=== PATIENT | female | born 1945 | race Two or more races ===

== ENCOUNTER 2017-02-19 08:09 | Emergency (ER) | payer OTHER ==
[~2017-02-19] VITALS: Wt 112.0 kg
[~2017-02-19 08:09] MED LIST: AMLO5TAB4 PO; ATOR20TA38 PO; BIMA2.5D BOTH EYES; CARV25TA79 PO; ESCI20TA38 PO; FURO-109 PO; LAMO100T PO; METF500T4 PO; OXYB5TAB7 PO; WARF4TAB52 PO
[2017-02-19] MEDS ORDERED: morphine 4 MG/ML VIAL IV STA (08:13)
[2017-02-19] MEDS ORDERED: ONDANSETRON 4 MG INJ IV STA (08:13)
[2017-02-19 08:14] VITALS: Wt 112.0 kg
--- NOTE | 2017-02-19 08:19 | ERA ---
ER Documentation Chief Complaint Date/Time DATE: 02/19/17 TIME: 08:17 Chief Complaint HPI 71-year-old female history of morbid obesity, atrial fibrillation who presents with right flank pain. The patient describes several days of right flank pain radiating to the anterior abdomen. The patient was seen by primary care physician several days ago and was noted to have microscopic hematuria. She denies colicky pain. The pain is worse with rotational movement. No chest pain no pleuritic pain no fevers or chills. She has prior history of cholecystectomy. No nausea vomiting or diarrhea or constipation. Pain is moderate. At this time. ROS All systems reviewed and are negative except as per history of present illness. Medications Home Meds Active Scripts Ondansetron (Ondansetron Odt) 4 Mg Tab.rapdis, 4 MG PO Q6H Y for NAUSEA AND/OR VOMITING, #30 TAB Prov:JEANIE RAMESH MD 02/19/17 Hydrocodone/Acetaminophen ([place] 10-325 Tablet) 1 Each Tablet, 1 TAB PO Q6H Y for PAIN, #7 TAB Prov:JEANIE RAMESH MD 02/19/17 Atorvastatin Calcium* (Atorvastatin Calcium*) 20 Mg Tablet, 20 MG PO QHS, #30 TAB Prov:ROMELIA HOLLOWAY FIELD GAUGER 05/07/16 Metformin Hcl* (Metformin Hcl*) 500 Mg Tablet, 500 MG PO WITH BREAKFAST DINNE, # 60 TAB Prov:ROMELIA HOLLOWAY FIELD GAUGER 05/07/16 Reported Medications Amlodipine Besylate* (Norvasc*) 5 Mg Tablet, 5 MG PO DAILY, TAB 05/06/16 Furosemide* (Lasix*) 40 Mg Tablet, 40 MG PO BID, TAB 05/06/16 Escitalopram Oxalate* (Escitalopram Oxalate*) 20 Mg Tablet, 20 MG PO DAILY, #30 TAB 10/19/15 Lamotrigine* (Lamotrigine*) 100 Mg Tablet, 100 MG PO BID, TAB 10/19/15 Carvedilol* (Carvedilol*) 25 Mg Tablet, 25 MG PO BID, #60 10/15/15 Warfarin Sodium* (Warfarin Sodium*) 4 Mg Tablet, 4 MG PO DAILY, TAB 03/26/14 Bimatoprost* (Lumigan*) 2.5 Ml Drops, 1 DROP BOTH EYES HS 06/02/13 Oxybutynin Chloride* (Ditropan*) 5 Mg Tablet, 5 MG PO TID 06/02/13 Allergies Allergies: Coded Allergies: No Known Drug Allergies (Verified Allergy, Mild, 05/06/16) PMhx/Soc History of Surgery: Yes (HYSTERECTOMY; GALL BLADDER REMOVAL; AICD PLACEMENT ) Anesthesia Reaction: No Hx Neurological Disorder: No Hx Respiratory Disorders: No Hx Cardiac Disorders: Yes (HTN; CARDIOMYOPATHY; AFIB; CHF; HIGH CHOLESTEROL ) Hx Psychiatric Problems: No Hx Miscellaneous Medical Probl: No Hx Alcohol Use: No Hx Substance Use: No Hx Tobacco Use: No FmHx Family History: No diabetes Physical Exam Vitals Vital Signs Date Time Temp Pulse Resp B/P Pulse Ox O2 Delivery O2 Flow Rate FiO2 02/19/17 08:14 97.9 86 20 170/88 98 Physical Exam General: Well developed, well nourished, slightly uncomfortable, morbid obesity Head: Normocephalic, atraumatic. Eyes: Pupils equally reactive, EOM intact ENT: Moist mucous membranes Neck: Supple, no lymphadenopathy Respiratory: Lungs clear bilaterally, no distress Cardiovascular: RRR, no murmurs, rubs, or gallops Abdominal: Soft, non-tender, non-distended, no peritoneal signs, no pulsatile mass Back: Mild soft tissue reproducible tenderness along the right flank no skin changes : Deferred MSK: No edema, no unilateral swelling, 5/5 strength Neurologic: Alert and oriented, moving all extremities, normal speech, no focal weakness, no cerebellar signs Skin: No rash, no vesicles Psych: Normal mood Result Diagram: 02/19/17 0830 02/19/17 0830 Results 24 hrs Laboratory Tests Test 02/19/17 08:30 02/19/17 09:14 White Blood Count 9.410^3/ul Red Blood Count 4.2110^6/ul Hemoglobin 12.7g/dl Hematocrit 37.9% Mean Corpuscular Volume 90.0fl Mean Corpuscular Hemoglobin 30.2pg Mean Corpuscular Hemoglobin Concent 33.5g/dl Red Cell Distribution Width 13.7% Platelet Count 51744^3/UL Mean Platelet Volume 10.2fl Neutrophils % 66.0% Lymphocytes % 25.3% Monocytes % 6.7% Eosinophils % 1.3% Basophils % 0.4% Nucleated Red Blood Cells % 0.0/100WBC Neutrophils # 6.210^3/ul Lymphocytes # 2.410^3/ul Monocytes # 0.610^3/ul Eosinophils # 0.110^3/ul Basophils # 0.010^3/ul Nucleated Red Blood Cells # 0.010^3/ul Sodium Level 143mmol/L Potassium Level 4.3mmol/L Chloride Level 103mmol/L Carbon Dioxide Level 24mmol/L Anion Gap 20 Blood Urea Nitrogen 18mg/dl Creatinine 0.75mg/dl Glucose Level 217mg/dl Calcium Level 9.2mg/dl Total Bilirubin 0.7mg/dl Direct Bilirubin 0.00mg/dl Indirect Bilirubin 0.7mg/dl Aspartate Amino Transf (AST/SGOT) 25IU/L Alanine Aminotransferase (ALT/SGPT) 27IU/L Alkaline Phosphatase 118IU/L Total Protein 8.2g/dl Albumin 4.3g/dl Globulin 3.90g/dl Albumin/Globulin Ratio 1.10 Lipase 205U/L Urine Color YELLOW Urine Clarity SLIGHTLY CLOUDY Urine pH 6.0 Urine Specific [place] 1.018 Urine Ketones NEGATIVEmg/dL Urine Nitrite NEGATIVEmg/dL Urine Bilirubin NEGATIVEmg/dL Urine Urobilinogen NEGATIVEmg/dL Urine Leukocyte Esterase NEGATIVELeu/ul Urine Microscopic RBC 0/HPF Urine Microscopic WBC 1/HPF Urine Squamous Epithelial Cells FEW/HPF Urine Bacteria FEW/HPF Urine Hemoglobin NEGATIVEmg/dL Urine Glucose NEGATIVEmg/dL Urine Total Protein 2+mg/dl Current Medications Medications (Trade) Dose Ordered Sig/Robbi Route PRN Reason Start Time Stop Time Status Last Admin Dose Admin Morphine Sulfate (morphine) 4 mg ONCE STAT IV 02/19/17 08:13 02/19/17 08:14 DC 02/19/17 08:21 Ondansetron HCl (Zofran Inj) 4 mg ONCE STAT IV 02/19/17 08:13 02/19/17 08:14 DC 02/19/17 08:21 Procedures/MDM EKG, MONITORS, & DIAGNOSTIC IMAGING: CT abdomen and pelvis: IMPRESSION: No evidence of urolithiasis, obstructive uropathy, diverticulitis or appendicitis. Diverticulosis. Post hysterectomy. Post cholecystectomy. Vascular calcifications. .Julian Cueto MD, MD Date Time Electronically viewed and signed by .Julian Cueto MD, MD on 02/19/2017 09: 11 .A/ CC: JEANIE RAMESH MD LAB INTERPRETATION: No significant leukocytosis, no evidence of urinary tract infection MEDICAL DECISION MAKING: The patient presents with several days of right flank pain. Broad differential exists including lumbar thoracic radiculopathy, muscle spasm secondary to body habitus, nephrolithiasis or ureterolithiasis. Low clinical concern for cholecystitis given absence of gallbladder. No signs or symptoms of acute aortic process such as dissection. No evidence of cardiopulmonary process such as pulmonary embolism. Given the patient's body habitus limiting exam I believe CT imaging of the abdomen and pelvis would be appropriate to rule out acute intra-abdominal process or ureterolithiasis. ER COURSE: The patient was given pain control medication and has improved symptomatology is now ambulatory. The patient's laboratory testing and CT imaging showed no evidence of acute process. This again is more likely secondary to musculoskeletal etiology secondary to body habitus versus lumbar radiculopathy or thoracolumbar radiculopathy. Outpatient follow-up with primary care physician would be most appropriate, consideration for MRI if symptoms do not improve with pain medication. Again no evidence of shingles. I kept the patient and/or family informed of laboratory and diagnostic imaging results throughout the emergency room course. DISPOSITION PLAN: We discussed follow up with the patient's primary care doctor within 24 to 48 hours as needed. We also discussed return to the emergency room for worsening symptoms or worsening condition. Outpatient referral: [None required] Discharge Medications: [place], Zofran We discussed the use of narcotics including avoidance of operating heavy machinery and driving as well as its addictive properties. Departure Diagnosis: Primary Impression: Acute flank pain Condition: Good JEANIE RAMESH MD Feb 19, 2017 08:19
[2017-02-19 09:05] LABS: BASOPHILS % 0.4 % (0.0-2.0); EOSINOPHILS # 0.1 10^3/ul (0.0-0.5); EOSINOPHILS % 1.3 % (0.0-7.0); HEMATOCRIT 37.9 % (37.0-47.0); HEMOGLOBIN 12.7 g/dl (12.0-16.0); LYMPHOCYTES # 2.4 10^3/ul (0.8-2.9); LYMPHOCYTES % 25.3 % (15.0-51.0); MEAN CORPUSCULAR HEMOGLOBIN 30.2 pg (29.0-33.0); MEAN CORPUSCULAR HGB CONC 33.5 g/dl (32.0-37.0); MEAN PLATELET VOLUME 10.2 fl (7.4-10.4); MONOCYTE # 0.6 10^3/ul (0.3-0.9); MONOCYTES % 6.7 % (0.0-11.0); NEUTROPHIL # 6.2 10^3/ul (1.6-7.5); PLATELET COUNT 282 10^3/UL (140-415); RED BLOOD COUNT 4.21 10^6/ul (4.20-5.40); RED CELL DISTRIBUTION WIDTH 13.7 % (11.5-14.5); WHITE BLOOD COUNT 9.4 10^3/ul (4.8-10.8)
--- NOTE | 2017-02-19 09:11 | RADRPT ---
PROCEDURE: CT abdomen and pelvis without contrast. CLINICAL INDICATION: Abdominal Pain TECHNIQUE: CT scan of the abdomen and pelvis without contrast was performed and is reconstructed a t 2.5 mm contiguous axial intervals from the dome of the diaphragm to the inferior pubic rami.. The patient was scanned without intravenous contrast. Sagittal and coronal reformatted images were obt ained from the axial source images. The calculated radiation dose measures 1216 mGy centimeters. The CTDI measures 24 mGy. COMPARISON: CT abdomen October 15, 2015. FINDINGS: The lung bases are clear of any infiltrate or nodule. No effusion is seen. Pacemaker wires seen in the heart. The liver is of normal size, contour and attenuation with no mass or ductal dilatation. Gallbladder has been removed. No splenic, adrenal or pancreatic abnormalities present. Kidneys are of normal size and contour. No hydronephrosis, calculus or masses seen. There is a 1 c m curvilinear calcification in the right renal pelvis likely representing calcification of the renal artery. Ureters are of normal course and caliber with no stone. No bladder mass or stone is presen t. Uterus is been removed. There is no adnexal mass. There is no aneurysm. Calcifications are present in the aorta and iliac arteries. No adenopathy is present. No bowel mass or obstruction is present. The appendix is not clearly visualized, however, no infl marlin appendix is seen.. No phlegmon, ascites or pneumoperitoneum is visualized. The osseous structures are intact. IMPRESSION: No evidence of urolithiasis, obstructive uropathy, diverticulitis or appendicitis. Diverticulosis. Post hysterectomy. Post cholecystectomy. Vascular calcifications. .Julian Cueto MD, MD Date Time Electronically viewed and signed by .Julian Cueto MD, MD on 02/19/2017 09:11 .A/
[2017-02-19 09:18] LABS: ALBUMIN 4.3 g/dl (3.3-4.9); ALBUMIN/GLOBULIN RATIO 1.1; BILIRUBIN,INDIRECT 0.7 mg/dl (0-1.1); BILIRUBIN,TOTAL 0.7 mg/dl (0.2-1.3); CALCIUM 9.2 mg/dl (8.4-10.2); CREATININE 0.75 mg/dl (0.44-1.00); POTASSIUM 4.3 mmol/L (3.5-5.1); TOTAL PROTEIN 8.2 g/dl (6.1-8.1)
[2017-02-19 09:38] LABS: ADD UMIC YES; UR ASCORBIC ACID NEGATIVE (NEGATIVE); UR BACTERIA FEW /HPF (NONE SEEN); UR BILIRUBIN (Dip) NEGATIVE (NEGATIVE); UR BLOOD (Dip) NEGATIVE (NEGATIVE); UR CLARITY SLIGHTLY CLOUDY (CLEAR); UR COLOR YELLOW (YELLOW); UR GLUCOSE (Dip) NEGATIVE (NEGATIVE); UR KETONES (Dip) NEGATIVE (NEGATIVE); UR LEUKOCYTE ESTERASE (Dip) NEGATIVE Leu/ul (NEGATIVE); UR NITRITE (Dip) NEGATIVE (NEGATIVE); UR RBC 0 /HPF (0-5); UR SPECIFIC GRAVITY (Dip) 1.018 (1.003-1.030); UR SQUAMOUS EPITHELIAL CELL FEW /HPF (FEW); UR TOTAL PROTEIN (Dip) 2+ mg/dl (NEGATIVE); UR UROBILINOGEN (Dip) NEGATIVE (NEGATIVE)
[2017-02-19] MEDS ORDERED: HYDR-902 PO (09:46)
[2017-02-19] MEDS ORDERED: ONDA4TAB14 PO (09:46)
[2017-02-19 10:11] VITALS: BP 161/85; PULSE 85; RESP 20; TEMP 98.4
== END 2017-02-19 10:13 | disposition home or self-care (01) ==
LOC: E/R 08:09
DX: R10.9 Unspecified abdominal pain (principal); I10 Essential (primary) hypertension; I50.9 Heart failure, unspecified; Z79.84 Long term (current) use of oral hypoglycemic drugs; Z79.01 Long term (current) use of anticoagulants
CPT/HCPCS: 74176; 80053; 81001; 83690; 85025; J2270; J2405; 36415; 96374; 96375

== ENCOUNTER 2018-05-21 16:26 | Emergency (ER) | END 2018-05-21 19:20 | disposition home or self-care (01) ==

== ENCOUNTER 2018-08-07 11:59 | Inpatient (IN) | payer OTHER ==
[~2018-08-07] VITALS: Ht 165.1 cm; Wt 135.4 kg
[~2018-08-07 11:59] MED LIST changes: +AMIO200T4 PO; -AMLO5TAB4 PO; +APIX5TAB PO; -BIMA2.5D BOTH EYES; +CARV12.579 PO; -CARV25TA79 PO; -ESCI20TA38 PO; +IBUP-1542 PO; -LAMO100T PO; -METF500T4 PO; +ONDA4TAB14 PO; -OXYB5TAB7 PO; +SITA50TA2 PO; +SOLI5TAB2 PO; -WARF4TAB52 PO
[2018-08-07] MEDS ORDERED: NITROGLYCERIN 2% 1 GM OINT PKT TD STA (12:01)
[2018-08-07] MEDS ORDERED: METOPROLOL 5 MG INJ IV ONE (12:30)
[2018-08-07] MEDS ORDERED: NITROGLYCERIN (SL) 0.4 MG TAB SL PRN (12:30)
[2018-08-07] MEDS ORDERED: FURO-110 PO (13:24)
[2018-08-07] MEDS ORDERED: ONDANSETRON 4 MG INJ IV PRN ×2 (13:30→18:00)
[2018-08-07] MEDS ORDERED: ACETAMINOPHEN 325 MG TAB PO PRN ×2 (13:30→18:00)
--- NOTE | 2018-08-07 13:49 | ERD ---
ER Documentation Chief Complaint Chief Complaint cp starting yesterday, cont this morning, no sob complaint HPI Patient is a 72-year-old female with atrial fibrillation, coronary disease, CHF, hypertension, and diabetes who presents with chest pain. The symptoms started last night. She describes her pain as a 6 out of 10 and after nitroglycerin and aspirin by paramedics she was 0 out of 10. She feels tired overall. She was br ought in by ambulance. ROS All systems reviewed and are negative except as per history of present illness. Medications Home Meds Reported Medications Furosemide* (Lasix*) 20 Mg Tablet, 20 MG PO DAILY, TAB 08/07/18 Atorvastatin Calcium* (Atorvastatin Calcium*) 20 Mg Tablet, 20 MG PO QHS, #30 TAB 05/21/18 Solifenacin* (Vesicare*) 5 Mg Tablet, 5 MG PO DAILY, TAB 05/21/18 Apixaban* (Eliquis*) 5 Mg Tablet, 5 MG PO BID, TAB 05/21/18 Sitagliptin* (Januvia*) 50 Mg Tablet, 50 MG PO DAILY, #30 TAB 05/21/18 Amiodarone Hcl* (Amiodarone Hcl*) 200 Mg Tablet, 200 MG PO DAILY, #30 TAB 05/21/18 Carvedilol* (Carvedilol*) 12.5 Mg Tablet, 12.5 MG PO BID, #60 TAB 05/21/18 Discontinued Reported Medications Furosemide* (Lasix*) 40 Mg Tablet, 60 MG PO DAILY, TAB 05/21/18 Discontinued Scripts Ondansetron (Ondansetron Odt) 4 Mg Tab.rapdis, 4 MG PO Q6H PRN for NAUSEA AND/OR VOMITING, #10 TAB Prov:ANNE MACEDO MD 05/21/18 Ibuprofen* (Motrin*) 600 Mg Tab, 600 MG PO Q6H PRN for PAIN AND OR ELEVATED TEMP, #30 TAB Prov:ANNE MACEDO MD 05/21/18 Allergies Allergies: Coded Allergies: No Known Drug Allergies (Verified Allergy, Mild, 05/21/18) PMhx/Soc Positive for coronary disease, CHF, hypertension, diabetes, and atrial fibrillation History of Surgery: No Anesthesia Reaction: No Hx Neurological Disorder: No Hx Respiratory Disorders: No Hx Cardiac Disorders: No Hx Psychiatric Problems: No Hx Miscellaneous Medical Probl: No Hx Alcohol Use: No Hx Substance Use: No Hx Tobacco Use: No FmHx Family History: coronary disease Physical Exam Vitals Vital Signs Date Temp Pulse Resp B/P (MAP) Pulse Ox O2 O2 Flow FiO2 Time Delivery Rate 08/07/18 98.8 125 20 154/127 99 12:11 (136) Physical Exam Const: No acute distress Head: Atraumatic Eyes: Normal Conjunctiva ENT: Normal External Ears, Nose and Mouth. Neck: Full range of motion. No meningismus. Resp: Clear to auscultation bilaterally Cardio: Irregular rhythm, tachycardic rate Abd: Soft, non tender, non distended. Normal bowel sounds Skin: Pale skin Back: No midline or flank tenderness Ext: No cyanosis, or edema Neur: Awake and alert Psych: Normal Mood and Affect Result Diagram: 08/07/18 1255 08/07/18 1255 Results 24 hrs Laboratory Tests Test 08/07/18 12:55 White Blood Count 8.7 10^3/ul Red Blood Count 4.48 10^6/ul Hemoglobin 13.4 g/dl Hematocrit 41.2 % Mean Corpuscular Volume 92.0 fl Mean Corpuscular Hemoglobin 29.9 pg Mean Corpuscular Hemoglobin Concent 32.5 g/dl Red Cell Distribution Width 13.2 % Platelet Count 290 10^3/UL Mean Platelet Volume 10.5 fl Immature Granulocytes % 0.200 % Neutrophils % 72.4 % Lymphocytes % 20.3 % Monocytes % 6.0 % Eosinophils % 0.6 % Basophils % 0.5 % Nucleated Red Blood Cells % 0.0 /100WBC Immature Granulocytes # 0.020 10^3/ul Neutrophils # 6.3 10^3/ul Lymphocytes # 1.8 10^3/ul Monocytes # 0.5 10^3/ul Eosinophils # 0.1 10^3/ul Basophils # 0.0 10^3/ul Nucleated Red Blood Cells # 0.0 10^3/ul Sodium Level 141 mmol/L Potassium Level 4.1 mmol/L Chloride Level 102 mmol/L Carbon Dioxide Level 27 mmol/L Anion Gap 12 Blood Urea Nitrogen 19 mg/dl Creatinine 0.84 mg/dl Est Glomerular Filtrat Rate mL/min > 60 mL/min Glucose Level 259 mg/dl Calcium Level 9.4 mg/dl Troponin I < 0.012 ng/ml Current Medications Medications Dose Sig/Robbi Start Time Status Last (Trade) Ordered Route PRN Stop Time Admin Dose Reason Admin 1 inch ONCE STAT 08/07/18 DC 08/07/18 Nitroglycerin TD 12:01 12:47 08/07/18 12:02 (Nitroglyceri n 2% Oint) 1 tab Q5M UP TO 3 08/07/18 Nitroglycerin DOSES PRN 12:30 SL CHEST (Nitroglyceri PAIN n (Sl Tab) 0.4 Mg) Metoprolol 5 mg ONCE ONCE 08/07/18 DC Tartrate IV 12:30 (Lopressor) 08/07/18 12:31 Ondansetron 4 mg ER BRIDGE 08/07/18 HCl (Zofran PRN IV 13:30 Inj) NAUSEA AND/OR 08/08/18 13:29 VOMITING 650 mg ER BRIDGE 08/07/18 Acetaminophen PRN PO MILD 13:30 (Tylenol PAIN(1-3)OR 08/08/18 13:29 Tab) ELEVATED TEMP Procedures/MDM EKG read by me: Rate/Rhythm: Rapid atrial fibrillation Intervals: Normal Impression: Rapid A. fib without ST elevations Chest x-ray read by radiology. Patient is a 72-year-old female with multiple chronic risk factors who presents with chest pain and rapid atrial fibrillation. She was given metoprolol 5 mg IV. She was given aspirin and nitroglycerin by paramedics. She was given nitroglycerin paste in the emergency department. She will be admitted to the care of the panel team to a telemetry bed. I am concerned about potential acute coronary syndrome as well. I doubt pneumonia, pneumothorax, pulmonary embolism, or aortic dissection. Critical Care: Time: 35 minutes excluding all billable procedures. Treatments/Evaluations: Close monitoring and treatment of unstable vital signs, cardiorespiratory, and neurologic status, while maintaining tight balance of fluid, respiratory, and cardiac interventions. Departure Diagnosis: Primary Impression: Rapid atrial fibrillation Additional Impression: Chest pain Chest pain type: unspecified Qualified Codes: R07.9 - Chest pain, unspecified Condition: ANNE Mcneal MD Aug 07, 2018 13:49
--- NOTE | 2018-08-07 17:55 | HP ---
Date/Time of Note Date/Time of Note DATE: 08/07/18 TIME: 17:51 Assessment/Plan VTE Prophylaxis Pharmacological prophylaxis: LMWH Lines/Catheters IV Catheter Type (from Nrs): Saline Lock Assessment/Plan Hospital Course 1. Chest pain likely secondary to palpitations Rule out ACS with troponins Cardizem drip and oral Cardizem Patient has an outpatient appointment with cardiology early next month, no indication for inpatient stress test 2. Morbid obesity Left cell changes advised 3. Diabetes Continue home regimen 4. Hypertension Continue home meds 5. History of cardiac arrest status post AICD placement No acute issues Prophylaxis: Lovenox Result Diagram: 08/07/18 1255 08/07/18 1255 Results 24hrs Laboratory Tests Test 08/07/18 12:55 White Blood Count 8.7 # Red Blood Count 4.48 Hemoglobin 13.4 Hematocrit 41.2 Mean Corpuscular Volume 92.0 Mean Corpuscular Hemoglobin 29.9 Mean Corpuscular Hemoglobin Concent 32.5 Red Cell Distribution Width 13.2 Platelet Count 290 Mean Platelet Volume 10.5 H Immature Granulocytes % 0.200 Neutrophils % 72.4 Lymphocytes % 20.3 Monocytes % 6.0 Eosinophils % 0.6 Basophils % 0.5 Nucleated Red Blood Cells % 0.0 Immature Granulocytes # 0.020 Neutrophils # 6.3 Lymphocytes # 1.8 Monocytes # 0.5 Eosinophils # 0.1 Basophils # 0.0 Nucleated Red Blood Cells # 0.0 Sodium Level 141 Potassium Level 4.1 Chloride Level 102 Carbon Dioxide Level 27 Anion Gap 12 Blood Urea Nitrogen 19 Creatinine 0.84 Est Glomerular Filtrat Rate mL/min > 60 Glucose Level 259 H Calcium Level 9.4 Troponin I < 0.012 HPI/ROS Admit Date/Time Admit Date/Time August 07, 2018 Hx of Present Illness Patient is a 72 year-old female with a history of morbid obesity, cardiac arrest status post defibrillator placement several years ago, paroxysmal A. fib, diabetes, hypertension who presents with chest pain and palpitations. In the ER patient was noted to be in A. fib with rapid response with elevated blood pressure. Patient does state that she is compliant with her medications, patient has no other complaints at this time. ROS Constitutional: no complaints, improved Eyes: no complaints ENT: no complaints Respiratory: no complaints Cardiovascular: chest pain Gastrointestinal: no complaints Genitourinary: no complaints Musculoskeletal: no complaints Skin: no complaints Neurologic: no complaints Endocrine: no complaints Lymphatic: no complaints Psychological: no complaints, nl mood/affect Immunologic: no complaints PMH/Family/Social Past Medical History As per HPI Medications Current Medications Nitroglycerin (Nitroglycerin (Sl Tab) 0.4 Mg) 1 tab Q5M UP TO 3 DOSES PRN SL CHEST PAIN; Start 08/07/18 at 12:30 Ondansetron HCl (Zofran Inj) 4 mg ER BRIDGE PRN IV NAUSEA AND/OR VOMITING; Start 08/07/18 at 13:30; Stop 08/08/18 at 13:29 Acetaminophen (Tylenol Tab) 650 mg ER BRIDGE PRN PO MILD PAIN(1-3)OR ELEVATED TEMP; Start 08/07/18 at 13:30; Stop 08/08/18 at 13:29 Coded Allergies: No Known Drug Allergies (Verified Allergy, Mild, 05/21/18) Past Surgical History History of hysterectomy and tubal ligation Family History Significant Family History: no pertinent family hx Social History Alcohol Use: rarely Smoking Status: Never smoker Drug Use: none Exam/Review of Systems Vital Signs Vitals Vital Signs Date Temp Pulse Resp B/P (MAP) Pulse Ox O2 O2 Flow FiO2 Time Delivery Rate 08/07/18 98.8 112 21 158/119 99 Room Air 17:24 (132) Exam Constitutional: alert, oriented Respiratory: clear to auscultation Cardiovascular: irregular rhythm Gastrointestinal: soft, non-tender; No distended Musculoskeletal: nl extremities to inspection DIANA FOSTER Aug 07, 2018 17:55
[2018-08-07 18:00] VITALS: BP 175/108
[2018-08-07] MEDS ORDERED: DILTIAZEM-D5W 125MG/125ML DRIP 125 ML IV SCH (18:00)
[2018-08-07] MEDS ORDERED: NACL 0.9% 3 ML SYG IV SCH (18:00)
[2018-08-07] MEDS ORDERED: ZOLPIDEM 5 MG TAB PO PRN (18:00)
[2018-08-07] MEDS ORDERED: DOCUSATE SODIUM 100 MG CAP PO PRN (18:00)
[2018-08-07] MEDS ORDERED: morphine LIQ (10 MG/5 ML) CUP PO PRN (18:00)
[2018-08-07] MEDS ORDERED: HYDROCODONE/APAP (5/325) TAB PO PRN (18:00)
[2018-08-07 18:15] VITALS: PULSE 125
[2018-08-07] MEDS ORDERED: GLUCOSE GEL 15 GRAM TUBE PO PRN ×2 (18:30)
[2018-08-07] MEDS ORDERED: GLUCOSE GEL 15 GRAM TUBE BUCCAL PRN (18:30)
[2018-08-07] MEDS ORDERED: DEXTROSE 50% 50 ML SYRINGE IV PRN ×2 (18:30)
[2018-08-07] MEDS ORDERED: GLUCAGON 1 MG INJ IM PRN (18:30)
[2018-08-07 20:00] VITALS: PULSE 109; Ht 165.1 cm; Wt 135.4 kg
[2018-08-07 20:29] VITALS: BP 145/80; PULSE 101
[2018-08-07] MEDS: INSULIN ASPART [NOVOLOG] 3 ML PEN SC SCH (21:04)
[2018-08-07] MEDS: APIXABAN 5 MG TABLET PO SCH (21:09)
[2018-08-07] MEDS: ATORVASTATIN 20 MG TAB PO SCH (21:09)
[2018-08-07] MEDS ORDERED: LIDOCAINE/MYLANTA 40 ML BTL PO ONE (23:00)
[2018-08-07] MEDS ORDERED: PANTOPRAZOLE (EC) 40 MG TAB PO ONE (23:00)
[2018-08-08] VITALS (12 sets, daily range): BP systolic 137–161; BP diastolic 72–88; PULSE 83–101; RESP 18–20
[2018-08-08] MEDS: ACCU-CHEK XX SCH ×2 (02:34→23:46)
[2018-08-08] MEDS: INSULIN ASPART [NOVOLOG] 3 ML PEN SC SCH ×7 (07:40→22:13)
[2018-08-08] MEDS ORDERED: POTASSIUM CHLORIDE (SR) 20 MEQ TAB PO STA (07:46)
[2018-08-08] MEDS: FUROSEMIDE 20 MG TAB PO SCH (08:12)
[2018-08-08] MEDS: APIXABAN 5 MG TABLET PO SCH ×2 (08:12→22:08)
[2018-08-08] MEDS: INSULIN GLARGINE [LANTus] (100 UNITS/ML) SYG SC SCH (08:28)
[2018-08-08] MEDS ORDERED: AMIODARONE 200 MG TAB PO SCH (09:00)
--- NOTE | 2018-08-08 14:15 | PN ---
Date/Time of Note Date/Time of Note DATE: 08/08/18 TIME: 14:13 Assessment/Plan VTE Prophylaxis Risk score (from Nsg)>0 risk: 5 Pharmacological prophylaxis: LMWH Lines/Catheters IV Catheter Type (from Nrsg): Peripheral IV Assessment/Plan Hospital Course 1. Chest pain likely secondary to palpitations-improved No evidence of ACS, troponins negative DC Cardizem drip Have increased home Coreg dose to 25 mg p.o. twice daily Patient has an outpatient appointment with cardiology early next month, no indication for inpatient stress test 2. Morbid obesity Lifestyle changes advised 3. Diabetes Continue home regimen 4. Hypertension Continue home meds 5. History of cardiac arrest status post AICD placement No acute issues 6. Acute respiratory distress likely secondary to deconditioning No evidence of bronchospasms on physical exam, chest x-ray is normal Continue supplemental oxygen PT eval Prophylaxis: Lovenox Result Diagram: 08/08/18 0508/08/18 0521 Results 24hrs Laboratory Tests Test 08/07/18 19:03 08/07/18 20:56 08/08/18 00:14 08/08/18 02:33 Creatine Kinase 29 34 Creatine Kinase 1.4 1.6 Index Creatinine Kinase MB 0.40 0.55 (Mass) Troponin I < 0.012 0.013 Bedside Glucose 263 H 178 Test 08/08/18 05:21 08/08/18 07:35 08/08/18 11:25 White Blood Count 8.6 Red Blood Count 4.11 L Hemoglobin 12.6 Hematocrit 37.9 Mean Corpuscular 92.2 Volume Mean Corpuscular 30.7 Hemoglobin Mean Corpuscular 33.2 Hemoglobin Concent Red Cell 13.3 Distribution Width Platelet Count 245 Mean Platelet Volume 10.2 Immature 0.200 Granulocytes % Neutrophils % 61.1 Lymphocytes % 30.5 Monocytes % 7.1 Eosinophils % 0.9 Basophils % 0.2 Nucleated Red Blood 0.0 Cells % Immature 0.020 Granulocytes # Neutrophils # 5.3 Lymphocytes # 2.6 Monocytes # 0.6 Eosinophils # 0.1 Basophils # 0.0 Nucleated Red Blood 0.0 Cells # Sodium Level 141 Potassium Level 3.3 L Chloride Level 101 Carbon Dioxide Level 28 Anion Gap 12 Blood Urea Nitrogen 26 H Creatinine 0.98 Est Glomerular 56 L Filtrat Rate mL/min Glucose Level 199 Hemoglobin A1c 9.3 H Calcium Level 9.1 Phosphorus Level 3.8 Magnesium Level 1.8 Bedside Glucose 220 229 H Subjective 24 Hr Interval Summary Respiratory: shortness of breath Exam/Review of Systems Vital Signs Vitals Vital Signs Date Temp Pulse Resp B/P (MAP) Pulse Ox O2 O2 Flow FiO2 Time Delivery Rate 08/08/18 100 12:45 08/08/18 97.4 18 147/77 95 Room Air 11:44 (100) 08/07/18 2.0 18:00 Intake and Output 08/07/18 08/07/18 08/08/18 1515:00 23:00 07:00 IntakeIntake Total 560 ml BalanceBalance 560 ml Exam Constitutional: alert, oriented Respiratory: clear to auscultation Cardiovascular: irregular rhythm Gastrointestinal: soft; No distended Musculoskeletal: nl extremities to inspection Medications Medications Current Medications Nitroglycerin (Nitroglycerin (Sl Tab) 0.4 Mg) 1 tab Q5M UP TO 3 DOSES PRN SL CHEST PAIN; Start 08/07/18 at 12:30 IV Flush (NS 3 ml) 3 ml PER PROTOCOL IV ; Start 08/07/18 at 18:00 Ondansetron HCl (Zofran Inj) 4 mg Q6H PRN IV NAUSEA AND/OR VOMITING; Start 08/07/18 at 18:00 Acetaminophen (Tylenol Tab) 650 mg Q6H PRN PO PAIN LEVEL 1-3 OR FEVER; Start 08/07/18 at 18:00 Acetaminophen/ Hydrocodone Bitart ([place] (5/325)) 1 tab Q6H PRN PO MODERATE PAIN LEVEL 4-6; Start 08/07/18 at 18:00 Morphine Sulfate (morphine) 6 mg Q4H PRN PO SEVERE PAIN LEVEL 7-10; Start 08/07/18 at 18:00 Docusate Sodium (Colace) 100 mg Q12H PRN PO CONSTIPATION; Start 08/07/18 at 18:00 Zolpidem Tartrate (Ambien) 5 mg QHS PRN PO SLEEP; Start 08/07/18 at 18:00 Amiodarone HCl (Cordarone) 200 mg DAILY PO Last administered on 08/08/18at 08:12; Admin Dose 200 MG; Start 08/08/18 at 09:00 Apixaban (Eliquis) 5 mg BID PO Last administered on 08/08/18at 08:12; Admin Dose 5 MG; Start 08/07/18 at 21:00 Atorvastatin Calcium (Lipitor) 20 mg QHS PO Last administered on 08/07/18at 21:09; Admin Dose 20 MG; Start 08/07/18 at 21:00 Furosemide (Lasix) 20 mg DAILY PO Last administered on 08/08/18at 08:12; Admin Dose 20 MG; Start 08/08/18 at 09:00 Carvedilol (Coreg) 25 mg BID PO Last administered on 08/08/18at 08:13; Admin Dose 25 MG; Start 08/07/18 at 21:00 Diagnostic Test (Pha) (Accu-Chek) 1 ea 02 XX Last administered on 08/08/18at 02:34; Admin Dose 1 EA; Start 08/08/18 at 02:00 Insulin Aspart (Novolog Insulin Pen) NOVOLOG *MILD* ALGORITHM WITH MEALS BEDTIME SC Last administered on 08/08/18at 11:30; Admin Dose 3 UNIT; Start 08/07/18 at 21:00 Miscellaneous Information 1 ea NOTE XX ; Start 08/07/18 at 18:30 Glucose (Glutose) 15 gm Q15M PRN PO DECREASED GLUCOSE; Start 08/07/18 at 18:30 Glucose (Glutose) 22.5 gm Q15M PRN PO DECREASED GLUCOSE; Start 08/07/18 at 18:30 Dextrose (D50w Syringe) 25 ml Q15M PRN IV DECREASED GLUCOSE; Start 08/07/18 at 18:30 Dextrose (D50w Syringe) 50 ml Q15M PRN IV DECREASED GLUCOSE; Start 08/07/18 at 18:30 Glucagon (Glucagen) 1 mg Q15M PRN IM DECREASED GLUCOSE; Start 08/07/18 at 18:30 Glucose (Glutose) 15 gm Q15M PRN BUCCAL DECREASED GLUCOSE; Start 08/07/18 at 18:30 Insulin Aspart (Novolog Insulin Pen) 5 unit WITH MEALS SC Last administered on 08/08/18at 11:32; Admin Dose 5 UNIT; Start 08/08/18 at 08:00 Insulin Glargine (Lantus) 15 units DAILY@0800 SC Last administered on 08/08/18at 08:28; Admin Dose 15 UNITS; Start 08/08/18 at 08:00 DIANA FOSTER Aug 08, 2018 14:15
[2018-08-08] MEDS ORDERED: MAGNESIUM SULFATE 2 GM/50 ML 50 ML IVPB ONE (19:30)
[2018-08-08] MEDS ORDERED: DILTIAZEM 30 MG TAB PO PRN (19:30)
[2018-08-08] MEDS ORDERED: POTASSIUM CHLORIDE (SR) 10 MEQ TAB PO ONE (19:30)
--- NOTE | 2018-08-08 19:30 | CONS ---
Date/Time of Note Date/Time of Note DATE: 08/08/18 TIME: 19:23 Assessment/Plan Assessment/Plan Assessment/Plan Atrial fibrillation with rapid ventricular rates, improved Chest pain with coughing History of cardiac arrest with ICD Hypertension Diabetes -Heart rate trend overall better. Coreg dose has been increased. Would increase amiodarone frequency. Would add as needed Cardizem. -Chest discomfort is with coughing but does not appear exertional. Serial cardiac enzymes remain negative. Will check echocardiogram. -Would maintain potassium above 4.0 and magnesium above 2.0. Result Diagram: 08/08/1852008/08/18520 Results 24hrs Laboratory Tests Test 08/07/18 20:56 08/08/18 00:14 08/08/18 02:33 08/08/18 05:21 Bedside Glucose 263 H 178 Creatine Kinase 34 Creatine Kinase 1.6 Index Creatinine Kinase MB 0.55 (Mass) Troponin I 0.013 White Blood Count 8.6 Red Blood Count 4.11 L Hemoglobin 12.6 Hematocrit 37.9 Mean Corpuscular 92.2 Volume Mean Corpuscular 30.7 Hemoglobin Mean Corpuscular 33.2 Hemoglobin Concent Red Cell 13.3 Distribution Width Platelet Count 245 Mean Platelet Volume 10.2 Immature 0.200 Granulocytes % Neutrophils % 61.1 Lymphocytes % 30.5 Monocytes % 7.1 Eosinophils % 0.9 Basophils % 0.2 Nucleated Red Blood 0.0 Cells % Immature 0.020 Granulocytes # Neutrophils # 5.3 Lymphocytes # 2.6 Monocytes # 0.6 Eosinophils # 0.1 Basophils # 0.0 Nucleated Red Blood 0.0 Cells # Sodium Level 141 Potassium Level 3.3 L Chloride Level 101 Carbon Dioxide Level 28 Anion Gap 12 Blood Urea Nitrogen 26 H Creatinine 0.98 Est Glomerular 56 L Filtrat Rate mL/min Glucose Level 199 Hemoglobin A1c 9.3 H Calcium Level 9.1 Phosphorus Level 3.8 Magnesium Level 1.8 Test 08/08/18 07:35 08/08/18 11:25 08/08/18 17:23 Bedside Glucose 220 229 H 165 Consultation Date/Type/Reason Admit Date/Time August 07, 2018 Type of Consult cv Reason for Consultation Palpitations and chest pain Hx of Present Illness This is a 72-year-old female past medical history of cardiac arrest status post ICD, paroxysmal atrial fibrillation, cardia myopathy who presents with multiple complaints. Patient complaining of palpitations on and off for the past 4 days. She also complains of a cough which has been dry. Complains of chest pain when she coughs. She denies any dizziness but does complain of fatigue. She does feel short of breath all the time which is intermittent and not always associate with activity. Her cough and chest discomfort has been improving palpitations are better since admission. 12 point review of systems was performed with all pertinent positives and negatives mentioned above and all else is negative Past Medical History Atrial fibrillation Medical History: congestive heart failure, hypertension Medications Current Medications Nitroglycerin (Nitroglycerin (Sl Tab) 0.4 Mg) 1 tab Q5M UP TO 3 DOSES PRN SL CHEST PAIN; Start 08/07/18 at 12:30 IV Flush (NS 3 ml) 3 ml PER PROTOCOL IV ; Start 08/07/18 at 18:00 Ondansetron HCl (Zofran Inj) 4 mg Q6H PRN IV NAUSEA AND/OR VOMITING; Start 08/07/18 at 18:00 Acetaminophen (Tylenol Tab) 650 mg Q6H PRN PO PAIN LEVEL 1-3 OR FEVER; Start 08/07/18 at 18:00 Acetaminophen/ Hydrocodone Bitart ([place] (5/325)) 1 tab Q6H PRN PO MODERATE PAIN LEVEL 4-6; Start 08/07/18 at 18:00 Morphine Sulfate (morphine) 6 mg Q4H PRN PO SEVERE PAIN LEVEL 7-10; Start 08/07/18 at 18:00 Docusate Sodium (Colace) 100 mg Q12H PRN PO CONSTIPATION; Start 08/07/18 at 18:00 Zolpidem Tartrate (Ambien) 5 mg QHS PRN PO SLEEP; Start 08/07/18 at 18:00 Amiodarone HCl (Cordarone) 200 mg DAILY PO Last administered on 08/08/18at 08:12; Admin Dose 200 MG; Start 08/08/18 at 09:00 Apixaban (Eliquis) 5 mg BID PO Last administered on 08/08/18at 08:12; Admin Dose 5 MG; Start 08/07/18 at 21:00 Atorvastatin Calcium (Lipitor) 20 mg QHS PO Last administered on 08/07/18at 21:09; Admin Dose 20 MG; Start 08/07/18 at 21:00 Furosemide (Lasix) 20 mg DAILY PO Last administered on 08/08/18at 08:12; Admin Dose 20 MG; Start 08/08/18 at 09:00 Carvedilol (Coreg) 25 mg BID PO Last administered on 08/08/18at 08:13; Admin Dose 25 MG; Start 08/07/18 at 21:00 Diagnostic Test (Pha) (Accu-Chek) 1 ea 02 XX Last administered on 08/08/18at 02:34; Admin Dose 1 EA; Start 08/08/18 at 02:00 Insulin Aspart (Novolog Insulin Pen) NOVOLOG *MILD* ALGORITHM WITH MEALS BEDTI ME SC Last administered on 08/08/18at 17:29; Admin Dose 1 UNIT; Start 08/07/18 at 21:00 Miscellaneous Information 1 ea NOTE XX ; Start 08/07/18 at 18:30 Glucose (Glutose) 15 gm Q15M PRN PO DECREASED GLUCOSE; Start 08/07/18 at 18:30 Glucose (Glutose) 22.5 gm Q15M PRN PO DECREASED GLUCOSE; Start 08/07/18 at 18:30 Dextrose (D50w Syringe) 25 ml Q15M PRN IV DECREASED GLUCOSE; Start 08/07/18 at 18:30 Dextrose (D50w Syringe) 50 ml Q15M PRN IV DECREASED GLUCOSE; Start 08/07/18 at 18:30 Glucagon (Glucagen) 1 mg Q15M PRN IM DECREASED GLUCOSE; Start 08/07/18 at 18:30 Glucose (Glutose) 15 gm Q15M PRN BUCCAL DECREASED GLUCOSE; Start 08/07/18 at 18:30 Insulin Aspart (Novolog Insulin Pen) 5 unit WITH MEALS SC Last administered on 08/08/18at 17:29; Admin Dose 5 UNIT; Start 08/08/18 at 08:00 Insulin Glargine (Lantus) 15 units DAILY@0800 SC Last administered on 08/08/18at 08:28; Admin Dose 15 UNITS; Start 08/08/18 at 08:00 Allergies: Coded Allergies: No Known Drug Allergies (Verified Allergy, Mild, 05/21/18) Past Surgical History Including but not limited to ICD Family History Significant Family History: no pertinent family hx Social History Alcohol Use: rarely Smoking Status: Never smoker Drug Use: none Exam/Review of Systems Vital Signs Vitals Vital Signs Date Temp Pulse Resp B/P (MAP) Pulse Ox O2 O2 Flow FiO2 Time Delivery Rate 08/08/18 96 16:30 08/08/18 97.4 18 140/72 98 15:33 (94) 08/08/18 Room Air 11:44 08/07/18 2.0 18:00 Intake and Output 08/07/18 08/07/18 08/08/18 1414:59 22:59 06:59 IntakeIntake Total 560 ml BalanceBalance 560 ml Exam No apparent distress, sitting in chair and speaking in complete sentences Constitutional: alert, oriented, obese Head: normocephalic Respiratory: other (Coarse breath sounds bilaterally, no wheezing) Cardiovascular: regular rate and rhythm (Occasional irregularities), other (S1- S2 heard) Gastrointestinal: soft, non-tender, bowel sounds Extremities: edema (Trace) Medications Medications Current Medications Nitroglycerin (Nitroglycerin (Sl Tab) 0.4 Mg) 1 tab Q5M UP TO 3 DOSES PRN SL CHEST PAIN; Start 08/07/18 at 12:30 IV Flush (NS 3 ml) 3 ml PER PROTOCOL IV ; Start 08/07/18 at 18:00 Ondansetron HCl (Zofran Inj) 4 mg Q6H PRN IV NAUSEA AND/OR VOMITING; Start 08/07/18 at 18:00 Acetaminophen (Tylenol Tab) 650 mg Q6H PRN PO PAIN LEVEL 1-3 OR FEVER; Start 08/07/18 at 18:00 Acetaminophen/ Hydrocodone Bitart ([place] (5/325)) 1 tab Q6H PRN PO MODERATE PAIN LEVEL 4-6; Start 08/07/18 at 18:00 Morphine Sulfate (morphine) 6 mg Q4H PRN PO SEVERE PAIN LEVEL 7-10; Start 08/07/18 at 18:00 Docusate Sodium (Colace) 100 mg Q12H PRN PO CONSTIPATION; Start 08/07/18 at 18:00 Zolpidem Tartrate (Ambien) 5 mg QHS PRN PO SLEEP; Start 08/07/18 at 18:00 Amiodarone HCl (Cordarone) 200 mg DAILY PO Last administered on 08/08/18at 08:12; Admin Dose 200 MG; Start 08/08/18 at 09:00 Apixaban (Eliquis) 5 mg BID PO Last administered on 08/08/18 08:12; Admin Dose 5 MG; Start 08/07/18 at 21:00 Atorvastatin Calcium (Lipitor) 20 mg QHS PO Last administered on 08/07/18at 21:09; Admin Dose 20 MG; Start 08/07/18 at 21:00 Furosemide (Lasix) 20 mg DAILY PO Last administered on 08/08/18 08:12; Admin Dose 20 MG; Start 08/08/18 at 09:00 Carvedilol (Coreg) 25 mg BID PO Last administered on 08/08/18 08:13; Admin Dose 25 MG; Start 08/07/18 at 21:00 Diagnostic Test (Pha) (Accu-Chek) 1 ea 02 XX Last administered on 08/08/18at 02:34; Admin Dose 1 EA; Start 08/08/18 at 02:00 Insulin Aspart (Novolog Insulin Pen) NOVOLOG *MILD* ALGORITHM WITH MEALS BEDTIME SC Last administered on 08/08/18 17:29; Admin Dose 1 UNIT; Start 08/07/18 at 21:00 Miscellaneous Information 1 ea NOTE XX ; Start 08/07/18 at 18:30 Glucose (Glutose) 15 gm Q15M PRN PO DECREASED GLUCOSE; Start 08/07/18 at 18:30 Glucose (Glutose) 22.5 gm Q15M PRN PO DECREASED GLUCOSE; Start 08/07/18 at 18:30 Dextrose (D50w Syringe) 25 ml Q15M PRN IV DECREASED GLUCOSE; Start 08/07/18 at 18:30 Dextrose (D50w Syringe) 50 ml Q15M PRN IV DECREASED GLUCOSE; Start 08/07/18 at 18:30 Glucagon (Glucagen) 1 mg Q15M PRN IM DECREASED GLUCOSE; Start 08/07/18 at 18:30 Glucose (Glutose) 15 gm Q15M PRN BUCCAL DECREASED GLUCOSE; Start 08/07/18 at 18:30 Insulin Aspart (Novolog Insulin Pen) 5 unit WITH MEALS SC Last administered on 08/08/18 17:29; Admin Dose 5 UNIT; Start 08/08/18 at 08:00 Insulin Glargine (Lantus) 15 units DAILY@0800 SC Last administered on 08/08/18 08:28; Admin Dose 15 UNITS; Start 08/08/18 at 08:00 Imaging Imaging ECG with atrial fibrillation at 120 bpm, intermittent paced rhythm, QRS 76 ms, nonspecific ST abnormalities Luis Cole DO Aug 08, 2018 19:30
[2018-08-08] MEDS: AMIODARONE 200 MG TAB PO SCH (22:09)
[2018-08-08] MEDS: ATORVASTATIN 20 MG TAB PO SCH (22:10)
[2018-08-09] VITALS (12 sets, daily range): BP systolic 122–151; BP diastolic 64–100; PULSE 70–111; RESP 18–20
[2018-08-09] MEDS: INSULIN ASPART [NOVOLOG] 3 ML PEN SC SCH ×4 (07:47→17:56)
[2018-08-09] MEDS: FUROSEMIDE 20 MG TAB PO SCH (08:04)
[2018-08-09] MEDS: AMIODARONE 200 MG TAB PO SCH ×2 (08:04→20:41)
[2018-08-09] MEDS: APIXABAN 5 MG TABLET PO SCH ×2 (08:04→20:41)
[2018-08-09] MEDS: INSULIN GLARGINE [LANTus] (100 UNITS/ML) SYG SC SCH (08:09)
[2018-08-09] MEDS ORDERED: FUROSEMIDE 20 MG INJ IV ONE (10:30)
--- NOTE | 2018-08-09 10:48 | PN ---
Date/Time of Note Date/Time of Note DATE: 08/09/18 TIME: 10:25 Assessment/Plan VTE Prophylaxis Risk score (from Nsg)>0 risk: 5 SCD applied (from Nsg): Yes Pharmacological prophylaxis: apixaban Lines/Catheters IV Catheter Type (from Nrsg): Peripheral IV Assessment/Plan Assessment/Plan 1. Chest pain: resolved -ACS ruled out, no further cardiac intervention planned for now -patient has upcoming appointment with OP national accounts recruiter 2. Mild CHF exacerbation: diastolic -will gently increase dosing of lasix -f/u Echo -cardiology also following 3. Afib: improved but still suboptimal rate control -?hx of ablation, -patient on coreg and amiodarone, cardiology managing meds -continue eliquis -f/u cardio recs, appreciate input 4. DM 2 with poor control, A!C 9.3 -patient hasn;t been on any meds, she thought coreg was for DM -start Basal and premeal insulin for now -may be transitioned to oral at discharge if appropriate -DM education 5. HTN -fair control on current meds -titrate as indicated 6. CKD? -Patient has had elevations in Cr to 1.5s in the past, baseline seems below 1 though -monitor trend closely -Renally dose all meds. Serial labs. 7. Morbid obesity -Lifestyle changes advised 8. Chronic cough -will get CT chest to define lung parenchyma 9. History of cardiac arrest status post AICD placement 10.Deconditioning -PT is ongoing, patient came from assisted living, will likely return there Dispo: -continue mgt and await clinical improvement Result Diagram: 08/09/18 0456 08/09/18 0456 Results 24hrs Laboratory Tests Test 08/08/18 11:25 08/08/18 17:23 08/08/18 22:13 08/09/18 04:56 Bedside Glucose 229 H 165 159 White Blood Count 9.6 Red Blood Count 4.06 L Hemoglobin 12.4 Hematocrit 37.3 Mean Corpuscular 91.9 Volume Mean Corpuscular 30.5 Hemoglobin Mean Corpuscular 33.2 Hemoglobin Concent Red Cell 13.3 Distribution Width Platelet Count 261 Mean Platelet Volume 10.5 H Immature 0.300 Granulocytes % Neutrophils % 60.9 Lymphocytes % 29.8 Monocytes % 6.8 Eosinophils % 0.8 Basophils % 1.4 Nucleated Red Blood 1.7 H Cells % Immature 0.030 Granulocytes # Neutrophils # 5.8 Lymphocytes # 2.9 Monocytes # 0.7 Eosinophils # 0.1 Basophils # 0.1 Nucleated Red Blood 0.2 H Cells # Sodium Level 142 Potassium Level 3.8 Chloride Level 104 Carbon Dioxide Level 27 Anion Gap 11 Blood Urea Nitrogen 31 H Creatinine 1.07 H Est Glomerular 51 L Filtrat Rate mL/min Glucose Level 192 Calcium Level 9.1 Magnesium Level 2.3 Test 08/09/18 07:40 Bedside Glucose 202 Subjective 24 Hr Interval Summary Free Text/Dictation -patient continues to complain about lethargy with exertion, states she still gets palpitations when ambulating -She's wondering if her heart needs to be shocked again -doesn;t know why she was taken of Januvia -states she's been having dry cough for about 1 year Exam/Review of Systems Vital Signs Vitals Vital Signs Date Temp Pulse Resp B/P (MAP) Pulse Ox O2 O2 Flow FiO2 Time Delivery Rate 08/09/18 111 08:00 08/09/18 97.2 18 151/86 96 Room Air 07:21 (107) 08/07/18 2.0 18:00 Intake and Output 08/08/18 08/08/18 08/09/18 1515:00 23:00 07:00 IntakeIntake Total 15 ml 750 ml BalanceBalance 15 ml 750 ml Exam Constitutional: alert, oriented, obese, other (lethargic) Psych: anxiety Head: normocephalic, atraumatic Eyes: PERRL ENMT: mucosa pink and moist Neck: supple Respiratory: clear to auscultation, diminished breath sounds; No crackles/rales, No wheezing Cardiovascular: irregular rhythm, other (tachy, Vpaced, afib on monitor) Gastrointestinal: soft, non-tender, bowel sounds Extremities: other (ankles are full, but non pitting) Neurological: nl mental status, lethargic; No focal weakness Medications Medications Current Medications Nitroglycerin (Nitroglycerin (Sl Tab) 0.4 Mg) 1 tab Q5M UP TO 3 DOSES PRN SL CHEST PAIN; Start 08/07/18 at 12:30 IV Flush (NS 3 ml) 3 ml PER PROTOCOL IV ; Start 08/07/18 at 18:00 Ondansetron HCl (Zofran Inj) 4 mg Q6H PRN IV NAUSEA AND/OR VOMITING; Start 08/07/18 at 18:00 Acetaminophen (Tylenol Tab) 650 mg Q6H PRN PO PAIN LEVEL 1-3 OR FEVER; Start 08/07/18 at 18:00 Acetaminophen/ Hydrocodone Bitart ([place] (5/325)) 1 tab Q6H PRN PO MODERATE PAIN LEVEL 4-6; Start 08/07/18 at 18:00 Morphine Sulfate (morphine) 6 mg Q4H PRN PO SEVERE PAIN LEVEL 7-10; Start 08/07/18 at 18:00 Docusate Sodium (Colace) 100 mg Q12H PRN PO CONSTIPATION; Start 08/07/18 at 18:00 Zolpidem Tartrate (Ambien) 5 mg QHS PRN PO SLEEP; Start 08/07/18 at 18:00 Apixaban (Eliquis) 5 mg BID PO Last administered on 08/09/18at 08:04; Admin Dose 5 MG; Start 08/07/18 at 21:00 Atorvastatin Calcium (Lipitor) 20 mg QHS PO Last administered on 08/08/18at 22:10; Admin Dose 20 MG; Start 08/07/18 at 21:00 Furosemide (Lasix) 20 mg DAILY PO Last administered on 08/09/18at 08:04; Admin Dose 20 MG; Start 08/08/18 at 09:00 Carvedilol (Coreg) 25 mg BID PO Last administered on 08/09/18at 08:04; Admin Dose 25 MG; Start 08/07/18 at 21:00 Diagnostic Test (Pha) (Accu-Chek) 1 ea 02 XX Last administered on 08/08/18at 02:34; Admin Dose 1 EA; Start 08/08/18 at 02:00 Insulin Aspart (Novolog Insulin Pen) NOVOLOG *MILD* ALGORITHM WITH MEALS BEDTI ME SC Last administered on 08/09/18at 07:47; Admin Dose 2 UNIT; Start 08/07/18 at 21:00 Miscellaneous Information 1 ea NOTE XX ; Start 08/07/18 at 18:30 Glucose (Glutose) 15 gm Q15M PRN PO DECREASED GLUCOSE; Start 08/07/18 at 18:30 Glucose (Glutose) 22.5 gm Q15M PRN PO DECREASED GLUCOSE; Start 08/07/18 at 18:30 Dextrose (D50w Syringe) 25 ml Q15M PRN IV DECREASED GLUCOSE; Start 08/07/18 at 18:30 Dextrose (D50w Syringe) 50 ml Q15M PRN IV DECREASED GLUCOSE; Start 08/07/18 at 18:30 Glucagon (Glucagen) 1 mg Q15M PRN IM DECREASED GLUCOSE; Start 08/07/18 at 18:30 Glucose (Glutose) 15 gm Q15M PRN BUCCAL DECREASED GLUCOSE; Start 08/07/18 at 18:30 Insulin Aspart (Novolog Insulin Pen) 5 unit WITH MEALS SC Last administered on 08/09/18at 08:09; Admin Dose 5 UNIT; Start 08/08/18 at 08:00 Insulin Glargine (Lantus) 15 units DAILY@0800 SC Last administered on 08/09/18at 08:09; Admin Dose 15 UNITS; Start 08/08/18 at 08:00 Amiodarone HCl (Cordarone) 200 mg BID PO Last administered on 08/09/18at 08:04; Admin Dose 200 MG; Start 08/08/18 at 21:00 Diltiazem HCl (Cardizem) 30 mg Q6H PRN PO Sustained heart rate >130; Start 08/08/18 at 19:30 Imaging Imaging PROCEDURE: XR Chest. CLINICAL INDICATION: Chest pain TECHNIQUE: Single portable view of the chest was obtained COMPARISON: CR CHEST 05/06/2016 FINDINGS: There is mild cardiomegaly. The thoracic aorta is calcified. There is mild pulmonary vascular congestion. There are bilateral perihilar and lower lobe increased interstitial changes. There is a left-sided pacemaker / AICD in place.. There is no pneumothorax. RPTAT: AA IMPRESSION: Mild cardiomegaly with pulmonary vascular congestion. .Lorenzo Merritt MD, MD Date Time Electronically viewed and signed by .Lorenzo Merritt MD, on 08/07/2018 12: 43 .S/ CC: ANNE MACEDO MD [id number] TIESHA SHAVER Aug 09, 2018 10:36
[2018-08-09] MEDS ORDERED: INSULIN GLARGINE [LANTus] (100 UNITS/ML) SYG SC SCH (12:15)
[2018-08-09] MEDS: DOCUSATE SODIUM 100 MG CAP PO SCH (17:16)
--- NOTE | 2018-08-09 18:21 | CONS ---
Date/Time of Note Date/Time of Note DATE: 08/09/18 TIME: 18:19 Assessment/Plan Assessment/Plan Assessment/Plan Atrial fibrillation with rapid ventricular rates, improved Chest pain with coughing History of cardiac arrest with ICD Hypertension Diabetes -Heart rate trend overall better. Coreg and amiodarone amiodarone has been increased. -Chest discomfort is with coughing but does not appear exertional and improving. Serial cardiac enzymes remain negative. -Would maintain potassium above 4.0 and magnesium above 2.0. Result Diagram: 08/09/18 0456 08/09/18 0456 Results 24hrs Laboratory Tests Test 08/08/18 22:13 08/09/18 04:54 08/09/18 04:56 08/09/18 07:40 Bedside Glucose 159 202 B-Type Natriuretic 1940 H Peptide Thyroid Stimulating 1.750 Hormone (TSH) Free Thyroxine 1.75 Free 2.81 Triiodothyronine (T3) pg/mL White Blood Count 9.6 Red Blood Count 4.06 L Hemoglobin 12.4 Hematocrit 37.3 Mean Corpuscular 91.9 Volume Mean Corpuscular 30.5 Hemoglobin Mean Corpuscular 33.2 Hemoglobin Concent Red Cell 13.3 Distribution Width Platelet Count 261 Mean Platelet Volume 10.5 H Immature 0.300 Granulocytes % Neutrophils % 60.9 Lymphocytes % 29.8 Monocytes % 6.8 Eosinophils % 0.8 Basophils % 1.4 Nucleated Red Blood 1.7 H Cells % Immature 0.030 Granulocytes # Neutrophils # 5.8 Lymphocytes # 2.9 Monocytes # 0.7 Eosinophils # 0.1 Basophils # 0.1 Nucleated Red Blood 0.2 H Cells # Sodium Level 142 Potassium Level 3.8 Chloride Level 104 Carbon Dioxide Level 27 Anion Gap 11 Blood Urea Nitrogen 31 H Creatinine 1.07 H Est Glomerular 51 L Filtrat Rate mL/min Glucose Level 192 Calcium Level 9.1 Magnesium Level 2.3 Test 08/09/18 11:18 08/09/18 17:16 Bedside Glucose 209 176 Consultation Date/Type/Reason Admit Date/Time Aug 07, 2018 at 13:29 Initial Consult Date Type of Consult cv 24 HR Interval Summary Free Text/Dictation Feeling better, denies current shortness of breath or chest pain. Exam/Review of Systems Vital Signs Vitals Vital Signs Date Temp Pulse Resp B/P (MAP) Pulse Ox O2 O2 Flow FiO2 Time Delivery Rate 08/09/18 101 16:00 08/09/18 97.4 20 127/82 96 Room Air 15:03 (97) 08/07/18 2.0 18:00 Intake and Output 08/08/18 08/08/18 08/09/18 1515:00 23:00 07:00 IntakeIntake Total 15 ml 750 ml BalanceBalance 15 ml 750 ml Exam No apparent distress, no dyspnea with speaking Constitutional: alert, oriented, obese Head: normocephalic Respiratory: other (Coarse breath sounds bilaterally, no wheezing) Cardiovascular: irregular rhythm, other (S1-S2 heard) Gastrointestinal: soft, non-tender, bowel sounds Extremities: edema Medications Medications Current Medications Nitroglycerin (Nitroglycerin (Sl Tab) 0.4 Mg) 1 tab Q5M UP TO 3 DOSES PRN SL CHEST PAIN; Start 08/07/18 at 12:30 IV Flush (NS 3 ml) 3 ml PER PROTOCOL IV ; Start 08/07/18 at 18:00 Acetaminophen (Tylenol Tab) 650 mg Q6H PRN PO PAIN LEVEL 1-3 OR FEVER; Start 08/07/18 at 18:00 Acetaminophen/ Hydrocodone Bitart ([place] (5/325)) 1 tab Q6H PRN PO MODERATE PAIN LEVEL 4-6; Start 08/07/18 at 18:00 Morphine Sulfate (morphine) 6 mg Q4H PRN PO SEVERE PAIN LEVEL 7-10; Start 08/07/18 at 18:00 Apixaban (Eliquis) 5 mg BID PO Last administered on 08/09/18at 08:04; Admin Dose 5 MG; Start 08/07/18 at 21:00 Atorvastatin Calcium (Lipitor) 20 mg QHS PO Last administered on 08/08/18at 22:10; Admin Dose 20 MG; Start 08/07/18 at 21:00 Furosemide (Lasix) 20 mg DAILY PO Last administered on 08/09/18at 08:04; Admin Dose 20 MG; Start 08/08/18 at 09:00 Carvedilol (Coreg) 25 mg BID PO Last administered on 08/09/18at 08:04; Admin Dose 25 MG; Start 08/07/18 at 21:00 Diagnostic Test (Pha) (Accu-Chek) 1 ea XX Last administered on 08/08/18at 02:34; Admin Dose 1 EA; Start 08/08/18 at 02:00 Glucose (Glutose) 15 gm Q15M PRN PO DECREASED GLUCOSE; Start 08/07/18 at 18:30 Glucose (Glutose) 22.5 gm Q15M PRN PO DECREASED GLUCOSE; Start 08/07/18 at 18:30 Dextrose (D50w Syringe) 25 ml Q15M PRN IV DECREASED GLUCOSE; Start 08/07/18 at 18:30 Dextrose (D50w Syringe) 50 ml Q15M PRN IV DECREASED GLUCOSE; Start 08/07/18 at 18:30 Glucagon (Glucagen) 1 mg Q15M PRN IM DECREASED GLUCOSE; Start 08/07/18 at 18:30 Glucose (Glutose) 15 gm Q15M PRN BUCCAL DECREASED GLUCOSE; Start 08/07/18 at 18:30 Amiodarone HCl (Cordarone) 200 mg BID PO Last administered on 08/09/18at 08:04; Admin Dose 200 MG; Start 08/08/18 at 21:00 Diltiazem HCl (Cardizem) 30 mg Q6H PRN PO Sustained heart rate >130; Start 08/08/18 at 19:30 Docusate Sodium (Colace) 100 mg Q12H PO ; Start 08/09/18 at 18:00 Insulin Glargine (Lantus) 25 units DAILY@0800 SC ; Start 08/10/18 at 08:00 Insulin Aspart (Novolog Insulin Pen) 9 unit WITH MEALS SC Last administered on 08/09/18at 17:56; Admin Dose 9 UNIT; Start 08/09/18 at 12:00 Luis Cole DO Aug 09, 2018 18:21
--- NOTE | 2018-08-09 18:44 | RADRPT ---
Echocardiogram Report Patient Name: SHARON LAZO Gender: Female Date: 1945 Study Date: 09-Aug-2018 Shaper Operator: Dyllan Gibbs [facility] Location: [facility] Ref. Physician: LUIS HOLLINGSWORTH Quality: Adequate Procedures: Transthoracic echocardiogram with complete 2D, M-Mode, and doppler examination. Indications: Atrial Fibrillation. Cardiomyopathy. 2D/M Mode Doppler Measurement Value Normal Ranges Measurement Value Normal Ranges LVIDd 2D 4.3 3.5 - 5.6 cm AV Peak Asif 1.5 m/sec LVIDs 2D 3.1 2.1 - 4.1 cm AV Peak PG 9.0 mmHg FS 2D 28.3 % LVOT Peak Asif 1.0 m/sec LVPWd 2D 1.3 0.6 - 1.1 cm LVOT Peak PG 4.0 mmHg IVSd 2D 1.3 0.6 - 1.1 cm TR Peak Asif 2.3 m/sec IVS/LVPW 2D 1.0 TR Peak PG 22.0 mmHg AoR Diam 2D 3.3 2.0 - 3.7 cm RVSP 25.0 mmHg LA/Ao 2D 1 0 - 1 RA Pressure 3.0 EDV 2D 78.4 cm3 ESV 2D 28.9 cm3 LA Dimen 2D 4.1 2.3 - 4.0 cm Findings Left Ventricle: Normal left ventricular systolic function. Normal left ventricular cavity size. Moderate concentric left ventricular hypertrophy. Ejection fraction is visually estimated at 55 %. Abnormal Diastolic Function. Right Ventricle: Normal right ventricular size. Normal right ventricular systolic function. Linear artifact in right ventricle suggestive of catheter, pacer lead, or ICD lead. Left Atrium: There is mild enlargement of left atrium. Right Atrium: The right atrium is normal in size. Mitral Valve: Mitral valve leaflets appear mildly thickened. Mild mitral annular calcification. Mild mitral valve regurgitation. Aortic Valve: No significant aortic stenosis or insufficiency. Aortic cusps appear mildly calcified. Tricuspid Valve: Normal appearance of the tricuspid valve. Estimated peak PA systolic pressure 25 mmHg. There is trace tricuspid regurgitation. Pulmonic Valve: Normal pulmonic valve appearance. Pericardium: Normal pericardium with no significant pericardial effusion. Aorta: Normal aortic root. IVC: Normal size and normal respiratory collapse consistent with normal right atrial pressure. Conclusions Normal left ventricular systolic function. Normal left ventricular cavity size. Moderate concentric left ventricular hypertrophy. Ejection fraction is visually estimated at 55 %. Abnormal Diastolic Function. Normal right ventricular size. Normal right ventricular systolic function. Linear artifact in right ventricle suggestive of catheter, pacer lead, or ICD lead. There is mild enlargement of left atrium. The right atrium is normal in size. Mild mitral valve regurgitation. No significant valvular stenosis or regurgitation seen of remaining visualized valves. Normal pericardium with no significant pericardial effusion. Electronically Signed By: Luis Hollingsworth 09-Aug-2018 18:43:44 -0800 Patient Name: SHARON LAZO Study Date: 09-Aug-2018 [id number]
[2018-08-09] MEDS: ATORVASTATIN 20 MG TAB PO SCH (20:40)
[2018-08-10] VITALS (11 sets, daily range): BP systolic 122–152; BP diastolic 70–90; PULSE 82–176; RESP 18–19
[2018-08-10] MEDS: ACCU-CHEK XX SCH (02:00)
[2018-08-10] MEDS: DOCUSATE SODIUM 100 MG CAP PO SCH ×2 (05:40→17:28)
[2018-08-10] MEDS ORDERED: INSULIN GLARGINE [LANTus] (100 UNITS/ML) SYG SC SCH (08:00)
[2018-08-10] MEDS: AMIODARONE 200 MG TAB PO SCH (08:40)
[2018-08-10] MEDS: FUROSEMIDE 20 MG TAB PO SCH (08:40)
[2018-08-10] MEDS: APIXABAN 5 MG TABLET PO SCH (08:41)
[2018-08-10] MEDS: INSULIN ASPART [NOVOLOG] 3 ML PEN SC SCH ×3 (08:48→17:28)
[2018-08-10] MEDS ORDERED: POTASSIUM CHLORIDE (SR) 20 MEQ TAB PO STA (13:43)
--- NOTE | 2018-08-10 13:43 | DS ---
Date/Time of Note Date/Time of Note DATE: 08/10/18 TIME: 13:35 Discharge Summary Admission/Discharge Info Admit Date/Time Aug 07, 2018 at 13:29 Discharge Date/Time Discharge Diagnosis 1. Chest pain: resolved / ACS ruled out 2. Mild CHF exacerbation: diastolic / compensated 3. Afib: rate controlled 4. DM 2 with improved control, A!C 9.3 5. HTN: control 6. CKD: Renally dose all meds. Serial labs. 7. Morbid obesity -Lifestyle changes advised 8. Chronic cough : 9. History of cardiac arrest status post AICD placement 10.Deconditioning : home PT and cardiac rehab 11. Incidental finding of 8mm renal aneurysm: monitoring and serial scans . Patient Condition: Stable Consults Cardiology: Kelsey Abebe MD . Hospital Course 72-year-old female who was admitted August 07, 2018 with complaints of chest pain and palpitations. She was ruled out for an acute coronary syndrome, she was followed in-house by cardiology. A 2D echo showed ejection fraction of 55%, she did have abnormal diastolic function and a mild mitral regurgitation but no other significant valvular stenosis or regurgitation. Regarding her atrial fibrillation and rapid ventricular rates, her amiodarone dosage was increased with improvement in rate, dyspnea on exertion improved with continue gentle diuresis, she was also given bronchodilator therapy which improved her symptoms. At this time we have noted a mild creatinine bump, however her initial levels are likely falsely normal due to being mildly overloaded and patient is likely back to her baseline which seems to range between 1.02 and 1.2. The patient's current is concerned about feelings of lethargy and inability to do much, at this time I think she would benefit from cardiac rehab and will be setting this up prior to discharge. 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 She was also counseled on the need to lose weight and maintain a healthy and active lifestyle as much as tolerated. She was advised not to overexert herself. She has verbalized understanding and willingness to try and agreement with the discharge plan. Patient has been evaluated by myself in detail and is stable for discharge once cleared by cardiology. I have also ordered a CT to properly define the lung parenchyma as patient had complained of a chronic cough, this is also pending at this time, but will review this once available as well and if no further intervention is required, will discharge the patient. CT reviewed: -mild reacctiev airway disease. Patient stable for discharge and continued outpatient followup. . . Home Meds Active Scripts [Insulin Glargine] 100 UNITS/ML SOLN No Conflict Check, 25 UNITS SC DAILY@0800, #8 VIAL Prov:TIESHA SHAVER. 08/10/18 Insulin Aspart* (Novolog Insulin Pen*) 100 Unit/Ml Soln, 9 UNIT SC WITH MEALS, #9 VIAL 1 [facility] 08/10/18 Docusate Sodium (Dok) 100 Mg Capsule, 100 MG PO Q12H, #60 [facility] 08/10/18 Carvedilol* (Carvedilol*) 25 Mg Tablet, 25 MG PO BID, #60 TAB 2 [facility] 08/10/18 Sitagliptin* (Januvia*) 50 Mg Tablet, 50 MG PO DAILY, #30 TAB 1 [facility] 08/10/18 Reported Medications Furosemide* (Lasix*) 20 Mg Tablet, 20 MG PO DAILY, TAB 08/07/18 Atorvastatin Calcium* (Atorvastatin Calcium*) 20 Mg Tablet, 20 MG PO QHS, #30 TAB 05/21/18 Solifenacin* (Vesicare*) 5 Mg Tablet, 5 MG PO DAILY, TAB 05/21/18 Apixaban* (Eliquis*) 5 Mg Tablet, 5 MG PO BID, TAB 05/21/18 Amiodarone Hcl* (Amiodarone Hcl*) 200 Mg Tablet, 200 MG PO DAILY, #30 TAB 05/21/18 Carvedilol* (Carvedilol*) 12.5 Mg Tablet, 12.5 MG PO BID, #60 TAB 05/21/18 Discontinued Reported Medications Furosemide* (Lasix*) 40 Mg Tablet, 60 MG PO DAILY, TAB 05/21/18 Discontinued Scripts Ondansetron (Ondansetron Odt) 4 Mg Tab.rapdis, 4 MG PO Q6H PRN for NAUSEA AND/OR VOMITING, #10 TAB Prov:ANNE MACEDO MD 05/21/18 Ibuprofen* (Motrin*) 600 Mg Tab, 600 MG PO Q6H PRN for PAIN AND OR ELEVATED TEMP, #30 TAB Prov:ANNE MACEDO MD 05/21/18 Follow-up Plan Please follow-up with your primary care doctor within 1 week to ensure continued resolution of symptoms and to let them know you have an 8 mm aneurysm which requires no further intervention but just serial monitoring. I have requested and ordered physical therapy to come assess you home and make sure it is safe for you. I have also ordered cardiac rehab for you. Stay compliant with all your medications and report any side effects to your primary care doctor or the pharmacist Review your medication list with your nurses before leaving Come back to the emergency room if you have any concerns or cannot reach your primary care doctor. . Primary Care Provider Not On Staff Doctor Time spent on discharge: > 30 minutes Pending Labs Laboratory Tests Test 08/09/18 17:16 08/10/18 05:27 08/10/18 08:34 08/10/18 11:47 Bedside 176 180 139 Glucose mg/dL (70-220) mg/dL (70-220) mg/dL (70-220) White Blood 9.3 Count 10^3/ul (4.8-1 0.8) Red Blood 4.10 Count 10^6/ul (4.20- 5.40) Hemoglobin 12.3 g/dl (12.0-16. 0) Hematocrit 38.3 % (37.0-47.0) Mean 93.4 Corpuscular fl (82.0-101.0 Volume ) Mean 30.0 Corpuscular pg (29.0-33.0) Hemoglobin Mean 32.1 Corpuscular g/dl (32.0-37. Hemoglobin Conc 0) ent Red Cell 13.3 Distribution % (11.5-14.5) Width Platelet Count 258 10^3/UL (140-4 15) Mean Platelet 10.3 Volume fl (7.4-10.4) Immature 0.300 Granulocytes % % (0.001-0.429 ) Neutrophils % 63.3 % (39.0-77.0) Lymphocytes % 28.1 % (15.0-51.0) Monocytes % 6.8 % (0.0-11.0) Eosinophils % 1.3 % (0.0-7.0) Basophils % 0.2 % (0.0-2.0) Nucleated Red 0.0 Blood Cells % /100WBC (0.0-0 .0) Immature 0.030 Granulocytes # 10^3/ul (0.0-0 .031) Neutrophils # 5.9 10^3/ul (1.6-7 .5) Lymphocytes # 2.6 10^3/ul (0.8-2 .9) Monocytes # 0.6 10^3/ul (0.3-0 .9) Eosinophils # 0.1 10^3/ul (0.0-0 .5) Basophils # 0.0 10^3/ul (0.0-0 .1) Nucleated Red 0.0 Blood Cells # 10^3/ul (0.0-0 .0) Sodium Level 139 mmol/L (135-14 4) Potassium 3.4 Level mmol/L (3.5-5. 1) Chloride Level 102 mmol/L (97-110 ) Carbon Dioxide 28 Level mmol/L (21-31) Anion Gap 9 (5-13) Blood Urea 37 Nitrogen mg/dl (7-20) Creatinine 1.11 mg/dl (0.44-1. 00) Est Glomerular 49 Filtrat mL/min (>60) Rate mL/min Glucose Level 150 mg/dl (70-220) Calcium Level 9.0 mg/dl (8.4-10. 2) Phosphorus 4.3 Level mg/dl (2.5-4.9 ) Magnesium 2.0 Level mg/dl (1.7-2.5 ) TIESHA SHAVER Aug 10, 2018 13:43
[2018-08-10] MEDS ORDERED: Insulin Glargine SC (13:47)
[2018-08-10] MEDS ORDERED: SITA50TA2 PO (13:47)
[2018-08-10] MEDS ORDERED: CARV25TA79 PO (13:47)
[2018-08-10] MEDS ORDERED: DOCU-216 PO (13:47)
[2018-08-10] MEDS ORDERED: NOVO3I SC (13:47)
--- NOTE | 2018-08-10 13:47 | PDOCDIS ---
Discharge Instructions DIAGNOSIS Discharge Diagnosis 1. Chest pain: resolved / ACS ruled out 2. Mild CHF exacerbation: diastolic / compensated 3. Afib: rate controlled 4. DM 2 with improved control, A!C 9.3 5. HTN: control 6. CKD: Renally dose all meds. Serial labs. 7. Morbid obesity -Lifestyle changes advised 8. Chronic cough : 9. History of cardiac arrest status post AICD placement 10.Deconditioning : home PT and cardiac rehab . CONDITION [id number] Patient Condition: [id number] Stable HOME CARE INSTRUCTIONS: [id number] Special Diet: [id number] Carb Controlled ACTIVITY: [id number] Activity Restrictions: [id number] Slowly Increase Activity Rest between Activity FOLLOW UP/APPOINTMENTS Follow-up Plan Please follow-up with your primary care doctor within 1 week to ensure continued resolution of symptoms and to let them know you have an 8 mm aneurysm which requires no further intervention but just serial monitoring. I have requested and ordered physical therapy to come assess you home and make sure it is safe for you. I have also ordered cardiac rehab for you. Stay compliant with all your medications and report any side effects to your primary care doctor or the pharmacist Review your medication list with your nurses before leaving Come back to the emergency room if you have any concerns or cannot reach your primary care doctor. . TIESHA SHAVER Aug 10, 2018 13:47
--- NOTE | 2018-08-10 15:11 | CONS ---
Date/Time of Note Date/Time of Note DATE: 08/10/18 TIME: 15:10 Assessment/Plan Assessment/Plan Assessment/Plan Atrial fibrillation with rapid ventricular rates, improved Chest pain with coughing History of cardiac arrest with ICD Hypertension Diabetes -Heart rate trend overall better. Coreg and amiodarone doses have been adjusted -Chest discomfort is with coughing but does not appear exertional and improving. Serial cardiac enzymes remain negative. -Would maintain potassium above 4.0 and magnesium above 2.0. -DC planning Result Diagram: 08/10/1827 08/10/18 0527 Results 24hrs Laboratory Tests Test 08/09/18 17:16 08/10/18 05:27 08/10/18 08:34 08/10/18 11:47 Bedside Glucose 176 180 139 White Blood Count 9.3 Red Blood Count 4.10 L Hemoglobin 12.3 Hematocrit 38.3 Mean Corpuscular 93.4 Volume Mean Corpuscular 30.0 Hemoglobin Mean Corpuscular 32.1 Hemoglobin Concent Red Cell 13.3 Distribution Width Platelet Count 258 Mean Platelet Volume 10.3 Immature 0.300 Granulocytes % Neutrophils % 63.3 Lymphocytes % 28.1 Monocytes % 6.8 Eosinophils % 1.3 Basophils % 0.2 Nucleated Red Blood 0.0 Cells % Immature 0.030 Granulocytes # Neutrophils # 5.9 Lymphocytes # 2.6 Monocytes # 0.6 Eosinophils # 0.1 Basophils # 0.0 Nucleated Red Blood 0.0 Cells # Sodium Level 139 Potassium Level 3.4 L Chloride Level 102 Carbon Dioxide Level 28 Anion Gap 9 Blood Urea Nitrogen 37 H Creatinine 1.11 H Est Glomerular 49 L Filtrat Rate mL/min Glucose Level 150 Calcium Level 9.0 Phosphorus Level 4.3 Magnesium Level 2.0 Consultation Date/Type/Reason Admit Date/Time Aug 07, 2018 at 13:29 Initial Consult Date Type of Consult cv 24 HR Interval Summary Free Text/Dictation Shortness of breath is improved. Denies chest pain, palpitations or dizziness Exam/Review of Systems Vital Signs Vitals Vital Signs Date Temp Pulse Resp B/P (MAP) Pulse Ox O2 O2 Flow FiO2 Time Delivery Rate 08/10/18 88 12:00 08/10/18 98.5 19 122/70 99 11:17 (87) 08/10/18 Room Air 04:22 08/07/18 2.0 18:00 Intake and Output 08/09/18 08/09/18 08/10/18 1515:00 23:00 07:00 IntakeIntake Total 1820 ml 220 ml BalanceBalance 1820 ml 220 ml Exam No apparent distress Constitutional: alert, oriented, obese Head: normocephalic Cardiovascular: irregular rhythm, other (S1-S2 heard) Gastrointestinal: soft, non-tender, bowel sounds Extremities: edema Medications Medications Current Medications Nitroglycerin (Nitroglycerin (Sl Tab) 0.4 Mg) 1 tab Q5M UP TO 3 DOSES PRN SL CHEST PAIN; Start 08/07/18 at 12:30 IV Flush (NS 3 ml) 3 ml PER PROTOCOL IV ; Start 08/07/18 at 18:00 Acetaminophen (Tylenol Tab) 650 mg Q6H PRN PO PAIN LEVEL 1-3 OR FEVER; Start 08/07/18 at 18:00 Acetaminophen/ Hydrocodone Bitart ([place] (5/325)) 1 tab Q6H PRN PO MODERATE PAIN LEVEL 4-6; Start 08/07/18 at 18:00 Morphine Sulfate (morphine) 6 mg Q4H PRN PO SEVERE PAIN LEVEL 7-10; Start 08/07/18 at 18:00 Apixaban (Eliquis) 5 mg BID PO Last administered on 08/10/18at 08:41; Admin Dose 5 MG; Start 08/07/18 at 21:00 Atorvastatin Calcium (Lipitor) 20 mg QHS PO Last administered on 08/09/18at 20:40; Admin Dose 20 MG; Start 08/07/18 at 21:00 Furosemide (Lasix) 20 mg DAILY PO Last administered on 08/10/18at 08:40; Admin Dose 20 MG; Start 08/08/18 at 09:00 Carvedilol (Coreg) 25 mg BID PO Last administered on 08/10/18at 08:41; Admin Dose 25 MG; Start 08/07/18 at 21:00 Diagnostic Test (Pha) (Accu-Chek) 1 ea 02 XX Last administered on 08/08/18at 02:34; Admin Dose 1 EA; Start 08/08/18 at 02:00 Glucose (Glutose) 15 gm Q15M PRN PO DECREASED GLUCOSE; Start 08/07/18 at 18:30 Glucose (Glutose) 22.5 gm Q15M PRN PO DECREASED GLUCOSE; Start 08/07/18 at 18:30 Dextrose (D50w Syringe) 25 ml Q15M PRN IV DECREASED GLUCOSE; Start 08/07/18 at 18:30 Dextrose (D50w Syringe) 50 ml Q15M PRN IV DECREASED GLUCOSE; Start 08/07/18 at 18:30 Glucagon (Glucagen) 1 mg Q15M PRN IM DECREASED GLUCOSE; Start 08/07/18 at 18:30 Glucose (Glutose) 15 gm Q15M PRN BUCCAL DECREASED GLUCOSE; Start 08/07/18 at 18:30 Amiodarone HCl (Cordarone) 200 mg BID PO Last administered on 08/10/18at 08:40; Admin Dose 200 MG; Start 08/08/18 at 21:00 Diltiazem HCl (Cardizem) 30 mg Q6H PRN PO Sustained heart rate >130; Start 08/08/18 at 19:30 Docusate Sodium (Colace) 100 mg Q12H PO ; Start 08/09/18 at 18:00 Insulin Glargine (Lantus) 25 units DAILY@0800 SC Last administered on 08/10/18at 08:48; Admin Dose 25 UNITS; Start 08/10/18 at 08:00 Insulin Aspart (Novolog Insulin Pen) 9 unit WITH MEALS SC Last administered on 08/10/18at 11:59; Admin Dose 9 UNIT; Start 08/09/18 at 12:00 Luis Cole DO Aug 10, 2018 15:11
[2018-08-10] MEDS ORDERED: ADV10050 INHALATION (16:59)
== END 2018-08-10 18:20 | disposition home health service (06) | DRG 308 ==
LOC: E/R 11:59 → 6WM 13:29
PROVIDERS: ADMIT Internal Medicine; ATTEND Family Medicine
DX: I48.91 Unspecified atrial fibrillation (principal); I50.33 Acute on chronic diastolic (congestive) heart failure; Z68.42 Body mass index [BMI] 45.0-49.9, adult; I13.0 Hypertensive heart and chronic kidney disease with heart failure and stage 1 through stage 4 chronic kidney disease, or unspecified chronic kidney disease; R00.2 Palpitations; E66.01 Morbid (severe) obesity due to excess calories; Z86.74 Personal history of sudden cardiac arrest; Z95.810 Presence of automatic (implantable) cardiac defibrillator; R06.03 Acute respiratory distress; R05 Cough; E11.22 Type 2 diabetes mellitus with diabetic chronic kidney disease; N18.9 Chronic kidney disease, unspecified; I72.2 Aneurysm of renal artery; I34.0 Nonrheumatic mitral (valve) insufficiency
CPT/HCPCS: 36415; 71045; 71250; 80048; 82550; 82553; 82962; 83036; 83735; 83880; 84100; 84439; 84443; 84481; 84484; 85025; 93005; 93306; 97162; J1815; J1940; J3475